=== PATIENT | male | born 1955 | race Caucasian/White ===

== ENCOUNTER 2018-07-17 22:21 | Emergency (ER) | payer BC, MEDICAID ==
[2018-07-17] MEDS ORDERED: Ketorolac 30 MG/ML SDV IVPUSH ONE (22:38)
--- NOTE | 2018-07-17 22:41 | EDM.PDOC ---
ED HPI GENERAL MEDICAL PROBLEM - General Chief Complaint: Flank Pain Stated Complaint: KIDNEY STONES Time Seen by Provider: 07/17/18 22:30 Source of Information: Reports: Patient, Family History Limitations: Reports: No Limitations - History of Present Illness INITIAL COMMENTS - FREE TEXT/NARRATIVE: 63-year-old male with sudden onset of left lower quadrant pain that evolved into left flank pain with intense discomfort and nausea over the past hour. He had been feeling fine up until that point. No fevers or chills, no dysuria. Onset: Sudden Duration: Hour(s): (Within the last hour) Associated Symptoms: Reports: No Other Symptoms Treatments MARKET SPECIALIST: Reports: Other (see below) Other Treatments MARKET SPECIALIST: unknown Left Flank Pain Score (Numeric/FACES): 10 - Related Data Allergies Allergy/AdvReac Type Severity Reaction Status Date / Time No Known Allergies Allergy Verified 07/17/18 22:34 Home Meds: Home Meds Albuterol Sulfate [Proair Hfa] 2 puff INH Q6HR PRN 07/17/18 [History] Tiotropium [Spiriva Handihaler] 1 puff INH DAILY 07/17/18 [History] ED ROS GENERAL - Review of Systems Review Of Systems: See Below Constitutional: Denies: Fever, Chills HEENT: Reports: No Symptoms Respiratory: Denies: Shortness of Breath, Cough Cardiovascular: Denies: Chest Pain GI/Abdominal: Reports: Abdominal Pain (Left lower quadrant), Nausea. Denies: Constipation, Diarrhea, Vomiting : Reports: Flank Pain. Denies: Frequency Musculoskeletal: Reports: No Symptoms Skin: Reports: No Symptoms Neurological: Reports: No Symptoms ED EXAM, GENERAL - Physical Exam Exam: See Below Exam Limited By: No Limitations General Appearance: Alert, Moderate Distress Eye Exam: Bilateral Eye: Normal Inspection Respiratory/Chest: No Respiratory Distress Cardiovascular: Regular Rate, Rhythm GI/Abdominal: Normal Bowel Sounds, Soft, Non-Tender (I cannot reproduce significant tenderness with palpation across the lower abdomen) Course - Vital Signs Last Recorded V/S: Last Vital Signs Temp 97.0 F 07/17/18 22:37 Pulse 96 07/17/18 23:12 Resp 14 07/17/18 23:12 BP 147/74 H 07/17/18 23:12 Pulse Ox 92 L 07/17/18 23:12 - Orders/Labs/Meds Meds: Medications Discontinued Medications Generic Name Dose Route Start Last Admin Trade Name Nataliia PRN Reason Stop Dose Admin Hydromorphone HCl 0.5 mg 07/18/18 00:24 07/18/18 00:36 Dilaudid IVPUSH 07/18/18 00:25 0.5 mg ONETIME ONE Administration Ketorolac Tromethamine 30 mg 07/17/18 22:38 07/17/18 22:43 Toradol IVPUSH 07/17/18 22:39 30 mg ONETIME ONE Administration Tamsulosin HCl 0.4 mg 07/17/18 23:13 07/17/18 23:17 Flomax PO 07/17/18 23:14 0.4 mg ONETIME ONE Administration - Re-Assessments/Exams Free Text/Narrative Re-Assessment/Exam: 07/17/18 22:41 This patient likely has renal colic. He was given 30 mg of IV Toradol and sent back for an abdomen and pelvis CT scan without contrast. 07/18/18 00:28 CT confirmed a 3 mm distal ureteral stone. Pain was much improved after the Toradol but did persist a moderate amount. He was given 0.4 mg oral Flomax, and discharged with Toradol 10 additional doses and 10 doses of hydrocodone. 0.5 mg of IV Dilaudid was given at discharge. He'll return in the next 24-48 hours if not improving. Departure - Departure Time of Disposition: 00:53 Disposition: Home, Self-Care 01 Clinical Impression: Ureteric colic - Discharge Information Instructions: Kidney Stones, [id number] Referrals: Florian Patel MD [Primary Care Provider] - Forms: ED Department Discharge Care Plan Goals: Drink normal amounts of water, use pain medicines as needed and prescribed, and return in the next 24-48 hours if not improving satisfactorily.
[2018-07-17] MEDS ORDERED: Tamsulosin 0.4 MG Cap.ER PO ONE (23:13)
--- NOTE | 2018-07-17 23:49 | CRLCT ---
INDICATION: Left flank pain. COMPARISON: None available TECHNIQUE: CT examination of the abdomen and pelvis was performed without contrast enhancement using 2 mm thick axial sections from the lung bases through the pubic symphysis. Oral contrast was not administered. Please note that all CT scans at this facility use dose modulation, iterative reconstruction, and/or weight-based dosing when appropriate to reduce radiation dose to as low as reasonably achievable. FINDINGS: There is a 3 millimeter left distal ureteral calculus located approximately 1 centimeter from the UVJ. This results in mild left hydroureter and mild left hydronephrosis. There is no sign of any additional left sided renal or ureteral calculi. There is no sign of any additional abnormality in the left kidney. In the abdomen, the unenhanced liver, spleen, pancreas, and adrenals are normal in appearance. There is a 4 millimeter nonobstructive calculus in the lower pole of the right kidney. The gallbladder is normal in appearance. The abdominal aorta is normal in caliber with no sign of dilatation. There is no sign of retroperitoneal mass or adenopathy. The stomach and loops of small bowel in the abdomen are normal in appearance. There is mild diverticulosis of the descending colon with no sign of diverticulitis. In the pelvis, the appendix is nonvisualized, but there is no sign of an inflammatory process in the area of the appendix. There is mild sigmoid diverticulosis without evidence of diverticulitis. The loops of small bowel and colon in the pelvis are otherwise normal in appearance. The prostate is normal in appearance. The urinary bladder is normal in appearance. There is no sign of pelvic or inguinal mass or adenopathy. The lung bases are clear. There is prominent L5-S1 disc degenerative disease. The rest of the lumbar spine is normal in appearance. IMPRESSION: Mild left hydronephrosis and left hydroureter produced by a 3 millimeter left distal ureteral calculus, located approximately 1 centimeter from the UVJ. CT of the abdomen shows no sign of any additional left-sided renal or ureteral calculi. Nonobstructing 4 millimeter calculus in the lower pole of the right kidney. Mild diverticulosis of the descending colon. CT of the pelvis shows mild diverticulosis of the sigmoid colon. Please note that all CT scans at this facility use dose modulation, iterative reconstruction, and/or weight-based dosing when appropriate to reduce radiation dose to as low as reasonably achievable. Dictated by Corona Acuna MD @ Jul 17 2018 11:42PM Signed by Dr. Corona Acuna @ Jul 17 2018 11:47PM
[2018-07-18] MEDS ORDERED: HYDROmorphone 0.5 MG/0.5 ML Syringe IVPUSH ONE (00:24)
== END 2018-07-18 00:55 | disposition home or self-care (01) ==
LOC: JP.ED 22:21
DX: N13.2 Hydronephrosis with renal and ureteral calculous obstruction (principal); Z79.899 Other long term (current) drug therapy
CPT/HCPCS: 74176; 96374; 96375; 99284; A9270; J1170; J1885

== ENCOUNTER 2020-07-22 18:18 | Emergency (ER) | payer MEDICAID ==
--- NOTE | 2020-07-22 20:55 | CRLCT ---
INDICATION: right sided flank pain, with hydro seen on u/s CT ABDOMEN AND PELVIS WITHOUT CONTRAST TECHNIQUE: Multidetector CT imaging was performed through the abdomen and pelvis without intravenous contrast administration. Coronal and sagittal reconstructions were generated. COMPARISON: 07/17/2018 CT abdomen and pelvis. FINDINGS: Lower chest: Bibasilar pulmonary emphysematous changes. Liver: Within normal limits. Gallbladder and bile ducts: No gallbladder wall thickening or calcified gallstones. No biliary dilation identified. Pancreas: Unremarkable. Spleen: Normal. Adrenals: No nodules or masses. Kidneys, ureters, and urinary bladder: Obstructing 5 x 5 x 3 millimeter stone in the distal right ureter approximately 5 centimeters above the ureterovesical junction, producing mild dilation of the proximal ureter and mild right hydronephrosis. Small nonobstructing right intrarenal stones are also present. Unchanged small cortical hypodensity within the left kidney most likely representing a small renal cyst. No bladder mass or definite wall thickening. Gastrointestinal tract and abdominal wall: Normal caliber small bowel without wall thickening. Multiple colon diverticula without evidence of diverticulitis. Small bilateral fat containing inguinal hernias. Vascular structures: Normal caliber abdominal aorta with mild aortoiliac atherosclerotic calcifications. Peritoneum: No free air, abscess, or significant free fluid. Lymph nodes: No pathologically enlarged nodes identified. Reproductive organs: Borderline prostatic enlargement. Bones: Degenerative disc disease at L5-S1. IMPRESSION: 1. Obstructing 5 millimeter stone in the distal right ureter producing mild right hydroureteronephrosis. 2. Nonacute additional findings as detailed above. RONALD ONEIL MD [facility] Dictated by Shin Oneil MD @ 07/22/2020 8:50:05 PM Dictated by: Shin Oneil MD @ 07/22/2020 20:53:50 (Electronically Signed)
[2020-07-22] MEDS ORDERED: Tamsulosin 0.4 MG Cap.ER PO ONE (22:08)
[2020-07-22] MEDS ORDERED: Ketorolac 30 MG/ML SDV IM ONE (22:08)
--- NOTE | 2020-07-22 22:08 | EDM.PDOC ---
ED HPI GENERAL MEDICAL PROBLEM - General Chief Complaint: Flank Pain Stated Complaint: KIDNEY STONE Time Seen by Provider: 07/22/20 18:21 Source of Information: Reports: Patient History Limitations: Reports: No Limitations - History of Present Illness INITIAL COMMENTS - FREE TEXT/NARRATIVE: Prakash is a 65-year-old male sent over from the [facility] walk-in [facility] in [place] for evaluation of acute onset of right-sided flank pain. The patient was in his usual state of health until 4 days ago when he started having a little bit of an upset stomach. This resolved until the next day when again he started having some right-sided abdominal pain and nausea. He again attributed to an upset stomach and took some anti-gas medication. The pain again resolved. Yesterday he had another bout but did not last very long and then today has had significantly worsening of the right-sided pain radiating into the groin and back causing nausea. His pain in the clinic was a 9 out of 10. He did receive Toradol 30 mg IM with marked improvement in his pain. He does have a history of a kidney stone previously and was told that there was another stone in the right kidney at that time. In the clinic, he had a CBC showing a leukocytosis and left shift which is likely demargination. His basic metabolic profile was unremarkable. His urinalysis showed greater than 100 RBCs with no WBCs and negative leukocyte esterase and nitrates. They did an ultrasound which showed right-sided hydronephrosis and blunting of the ureteral jet but no evidence for stone. The patient was transferred to the ED for further evaluation including a CT of the abdomen and pelvis without contrast. Right Flank Pain Score (Numeric/FACES): 4 - Related Data Allergies Allergy/AdvReac Type Severity Reaction Status Date / Time No Known Allergies Allergy Verified 07/17/18 22:34 Home Meds: Home Meds Albuterol Sulfate [Proair Hfa] 2 puff INH Q6HR PRN 07/17/18 [History] Apixaban [Eliquis] 5 mg PO DAILY 07/22/20 [History] Tamsulosin HCl [Flomax] 0.4 mg PO DAILY #14 cap.er.24h 07/22/20 [Rx] Past Medical History HEENT History: Reports: Impaired Vision Respiratory History: Reports: Asthma, PE, Other (See Below) Other Respiratory History: on eliquis Genitourinary History: Reports: Renal Calculus Hematologic History: Reports: Anticoagulation Therapy Dermatologic History: Reports: Other (See Below) Other Dermatologic History: rash on back being treated - Infectious Disease History Infectious Disease History: Reports: Chicken Pox - Past Surgical History GI Surgical History: Reports: Appendectomy Social & Family History - Tobacco Use Tobacco Use Status *Q: Never Tobacco User - Caffeine Use Caffeine Use: Reports: Coffee - Recreational Drug Use Recreational Drug Use: No ED ROS GENERAL - Review of Systems Review Of Systems: See Below Constitutional: Reports: No Symptoms HEENT: Reports: No Symptoms Respiratory: Reports: No Symptoms Cardiovascular: Reports: No Symptoms Endocrine: Reports: No Symptoms GI/Abdominal: Reports: Abdominal Pain (Right upper abdominal pain) : Reports: Flank Pain (Right-sided flank pain), Hematuria, Other (Decreased urine output today despite drinking 512 ounce bottles of water.). Denies: Frequency, Urgency Musculoskeletal: Reports: No Symptoms Skin: Reports: No Symptoms Neurological: Reports: No Symptoms Psychiatric: Reports: No Symptoms Hematologic/Lymphatic: Reports: No Symptoms Immunologic: Reports: No Symptoms ED EXAM, RENAL/ - Physical Exam Exam: See Below Exam Limited By: No Limitations General Appearance: Alert, Mild Distress Head: Normocephalic Neck: Normal Inspection Respiratory/Chest: No Respiratory Distress, Lungs Clear, Normal Breath Sounds Cardiovascular: Normal Peripheral Pulses, Regular Rate, Rhythm GI/Abdominal: Normal Bowel Sounds, Soft. No: Guarding, Rigid, Rebound Back Exam: CVA Tenderness (R) Extremities: Normal Inspection, Normal Range of Motion Neurological: Alert, Oriented, Normal Cognition, No Motor/Sensory Deficits Psychiatric: Normal Affect, Normal Mood Skin Exam: Warm, Dry Course - Vital Signs Last Recorded V/S: Last Vital Signs Temp 36.4 C 07/22/20 19:52 Pulse 77 07/22/20 19:52 Resp 18 07/22/20 19:52 BP 123/82 07/22/20 19:52 Pulse Ox 92 L 07/22/20 19:52 - Radiology Interpretation Free Text/Narrative:: I reviewed the CT of the abdomen pelvis without contrast demonstrating a 5 x 5 x 3 mm stone in the right distal ureter about 5 cm above the ureterovesicular junction. There is mild hydronephrosis and hydroureter. No other intra- abdominal abnormalities. - Re-Assessments/Exams Free Text/Narrative Re-Assessment/Exam: 07/22/20 22:[address] of the abdomen and pelvis without contrast demonstrating a 5 x 5 x 3 mm stone in the distal right ureter approximately 5 cm above the UVJ causing hydronephrosis and hydroureter. We will put the patient on Flomax 0.4 mg daily, Toradol 10 mg 4 times daily as needed for pain, and oxycodone 5/325 mg every 6 hours as needed for moderate to severe pain. The patient will likely be able to pass the stone but he will need to really push fluids so I recommend 10 ounces of water every hour he is awake. This will also be important once he does pass the stone to prevent new stone formation and to allow for proper healing of the ureter which has been traumatized by passage of the stone. Indications to return to the ED were discussed. The patient is in agreement with the plan. He was discharged in satisfactory condition. Departure - Departure Time of Disposition: 22:12 Disposition: Home, Self-Care 01 Clinical Impression: Ureterolithiasis, Renal colic on right side Hydronephrosis Qualifiers: Hydronephrosis type: with renal calculous obstruction Qualified Code(s): N13.2 - Hydronephrosis with renal and ureteral calculous obstruction - Discharge Information Instructions: Renal Colic, [id number], Kidney Stones, [id number], Dietary Guidelines to Help Prevent Kidney Stones Referrals: Florian Patel MD [Primary Care Provider] - Care Plan Goals: I am sending you home with a prescription for Toradol 10 mg four times a day as needed for pain. This should be the baseline of your pain management. I am also sending you with oxycodone 5/325 mg every 6 hours for moderate to severe pain. In addition, there is a prescription for Flomax that she will need to take to your pharmacy tomorrow which is once daily for the next 2 weeks. Sepsis Event Note (ED) - Evaluation Sepsis Screening Result: No Definite Risk - Focused Exam Vital Signs: Vital Signs Temp Pulse Resp BP Pulse Ox 07/22/20 19:52 36.4 C 77 18 123/82 92 L - Problem List & Annotations (1) Hydronephrosis SNOMED Code(s): 04660825 Code(s): N13.30 - UNSPECIFIED HYDRONEPHROSIS Status: Acute Priority: Medium Current Visit: Yes Qualifiers: Hydronephrosis type: with renal calculous obstruction Qualified Code(s): N13.2 - Hydronephrosis with renal and ureteral calculous obstruction (2) Renal colic on right side SNOMED Code(s): 5012640 Code(s): N23 - UNSPECIFIED RENAL COLIC Status: Acute Priority: Medium Current Visit: Yes (3) Ureterolithiasis SNOMED Code(s): 13139293 Code(s): N20.1 - CALCULUS OF URETER Status: Acute Priority: Medium Current Visit: Yes - Problem List Review Problem List Initiated/Reviewed/Updated: Yes
== END 2020-07-22 22:28 | disposition home or self-care (01) ==
LOC: JP.ED 18:18
DX: N13.2 Hydronephrosis with renal and ureteral calculous obstruction (principal); Z86.711 Personal history of pulmonary embolism; Z79.01 Long term (current) use of anticoagulants
CPT/HCPCS: 74176; 96372; 99284; A9270; J1885

== ENCOUNTER 2022-06-13 02:00 | Emergency (ER) | payer MEDICARE, BC ==
[2022-06-13] MEDS ORDERED: Sodium Chloride 0.9% 10 ML Syringe FLUSH PRN (02:25)
[2022-06-13] MEDS ORDERED: Methocarbamol 500 MG Tab PO STA (02:25)
[2022-06-13] MEDS ORDERED: HYDROmorphone 0.5 MG/0.5 ML Syringe IVPUSH ONE (02:27)
[2022-06-13 03:06] LABS: ESTIMATED GFR 74 mL/min (>60)
[2022-06-13] MEDS ORDERED: predniSONE 20 MG Tab PO ONE (03:42)
[2022-06-13] MEDS ORDERED: HYDROmorphone 1 MG/ML Syringe IVPUSH ONE (05:03)
== END 2022-06-13 07:45 ==
LOC: JP.ED 02:00
DX: S12.041A Nondisplaced lateral mass fracture of first cervical vertebra, initial encounter for closed fracture (principal); S46.811A Strain of other muscles, fascia and tendons at shoulder and upper arm level, right arm, initial encounter; M47.812 Spondylosis without myelopathy or radiculopathy, cervical region; J44.9 Chronic obstructive pulmonary disease, unspecified; Z79.01 Long term (current) use of anticoagulants; Z20.822 Contact with and (suspected) exposure to COVID-19; X50.1XXA Overexertion from prolonged static or awkward postures, initial encounter
CPT/HCPCS: 36415; 71046; 71046-26; 72125; 76377; 80053; 84484; 85025; 86140; 96374; 96376; 99285; 99285-25; A9270-GY; J1170; J3490; J7512; U0002